=== PATIENT | female | born 1995 | race Two or more races ===

== ENCOUNTER 2018-07-05 04:20 | Emergency (ER) | payer OTHER ==
[2018-07-05] MEDS ORDERED: ONDANSETRON 4 MG TAB.RAPDIS PO ONE (04:46)
--- NOTE | 2018-07-05 06:37 | ER Document Report ---
ED General - General Chief Complaint: Nausea/Vomiting Stated Complaint: POSSIBLE CO EXPOSURE Time Seen by Provider: 07/05/18 04:53 Notes: Patient is a pleasant 23-year-old female who is at the hotel tonight when there was a carbon monoxide leak. Patient says that she was woken by a hotel and told to come out. She said that time she was having headache and some nausea and felt unwell. She does not think she passed out. She felt weak and dizzy. She has no chronic medical problems and is otherwise healthy. TRAVEL OUTSIDE OF THE [place] IN LAST 30 DAYS: No - Related Data Allergies/Adverse Reactions: No Known Allergies Allergy (Verified 07/05/18 11:05) Past Medical History - Social History Smoking Status: Never Smoker Frequency of alcohol use: None Drug Abuse: None Family History: Reviewed & Not Pertinent Patient has suicidal ideation: No Patient has homicidal ideation: No Renal/ Medical History: Denies: Hx Peritoneal Dialysis Review of Systems - Review of Systems Notes: My Normal Review Basic REVIEW OF SYSTEMS: CONSTITUTIONAL : Denies fever, chills, or sweats. Denies recent illness. EENT: Denies eye, ear, throat, or mouth pain or symptoms. Denies nasal or sinus congestion. CARDIOVASCULAR: Denies chest pain. RESPIRATORY: Denies cough, cold, or chest congestion. Denies shortness of breath, difficulty breathing, or wheezing. GASTROINTESTINAL: Denies abdominal pain. Denies nausea, vomiting, or diarrhea. MUSCULOSKELETAL: Denies neck or back pain or joint pain or swelling. SKIN: Denies rash or skin lesions. NEUROLOGICAL: Denies altered mental status or loss of consciousness. Has a headache. Denies weakness or paralysis or loss of use of either side. Denies problems with gait or speech. Denies sensory or motor loss. ALL OTHER SYSTEMS REVIEWED AND NEGATIVE. Physical Exam - Vital signs Vitals: Temp 98.0 F 07/05/18 04:25 - Notes Notes: General Appearance: Well nourished, alert, cooperative, no acute distress, no obvious discomfort. Well appearing. Vitals: reviewed, See vital signs table. Head: no swelling or tenderness to the head Eyes: PERRL, EOMI, Conjuctiva clear Mouth: No decreasd moisture Neck: Supple, no neck tenderness, No thyromegaly Lungs: No wheezing, No rales, No rhonci, No accessory muscle use, good air exchange bilaterally. Heart: Normal rate, Regular rythm, No murmur, no rub Abdomen: Normal BS, soft, No rigidity, No abdominal tenderness, No guarding, no rebound, Extremities: strength 5/5 in all extremities, good pulses in all extremities, no swelling or tenderness in the extremities, no edema. Skin: warm, dry, appropriate color, no rash Neuro: speech clear, oriented x 3, normal affect, responds appropriately to questions. Cranial nerves II through XII are intact. Distal sensation intact. Patient moves all extremities without difficulty. Normal coordination of movements. Course - Re-evaluation Re-evalutation: 07/05/18 06:35 Patient symptoms have completely resolved except for a mild headache. Patient' s repeat check of carbon monoxide is 7%. She looks very well. She is able to stand and walk without any ataxia. She has normal coordination of movement. She has no signs of shortness of breath. She looks well and I feel safe to be discharged home. I strongly encouraged her return to ER if she has severe headache, vomiting, or feels unwell. Patient agrees with plan and will be discharged home. Dictation of this chart was performed using voice recognition software; therefore, there may be some unintended grammatical errors. 07/06/18 00:00 - Vital Signs Vital signs: Temp Pulse Resp BP Pulse Ox 98.3 F 12 114/68 100 07/05/18 06:42 07/05/18 06:37 07/05/18 06:37 07/05/18 06:37 - Laboratory Laboratory results interpreted by me: 07/05/18 04:26 Carboxyhemoglobin 16.8 H Discharge - Discharge Clinical Impression: Carbon monoxide poisoning Qualifiers: Encounter type: initial encounter Injury intent: accidental or unintentional Qualified Code(s): T58.91XA - Toxic effect of carbon monoxide from unspecified source, accidental (unintentional), initial encounter Condition: Good Disposition: HOME, SELF-CARE Additional Instructions: Please return to the ER immediately if you develop worsening headache, vomiting , or feel unwell in any way. Please avoid the hotel until it is completely deemed safe to go in to by the fire department.
[2018-07-05 06:42] VITALS: BP 114/68
== END 2018-07-05 07:00 | disposition home or self-care (01) ==
LOC: ER 04:20
DX: T58.91XA Toxic effect of carbon monoxide from unspecified source, accidental (unintentional), initial encounter (principal); R11.2 Nausea with vomiting, unspecified; R51 Headache; R42 Dizziness and giddiness; X58.XXXA Exposure to other specified factors, initial encounter
CPT/HCPCS: 99284; 36415; 82375; 84703; S0119

== ENCOUNTER 2018-07-05 11:03 | Emergency (ER) | payer OTHER ==
[2018-07-05] MEDS ORDERED: IBUPROFEN 600 MG TABLET PO ONE (12:04)
--- NOTE | 2018-07-05 12:53 | RADIOLOGY REPORT (SQ) ---
EXAM DESCRIPTION: SACRUM AND COCCYX COMPLETED DATE/TIME: 07/05/2018 12:37 pm REASON FOR STUDY: fell on tailbone COMPARISON: None. NUMBER OF VIEWS: Three views. TECHNIQUE: AP, lateral, and tilt views of the sacrum and coccyx. LIMITATIONS: None. FINDINGS: MINERALIZATION: Normal. BONES: No acute fracture or dislocation. No worrisome bone lesions. SOFT TISSUES: No soft tissue swelling. No foreign body. OTHER: No other significant finding. IMPRESSION: NEGATIVE STUDY OF THE SACRUM AND COCCYX. TECHNICAL DOCUMENTATION: JOB ID: [id number] [employer]- All Rights Reserved Reading location - IP/workstation name: [email or web address]
--- NOTE | 2018-07-05 13:26 | ER Document Report ---
HPI - HPI Pain Level: 4 Notes: Patient is a 23-year-old female who presents with pain to her tailbone. Patient reports that she was evacuating from the hotel this morning when she fell landing onto her tailbone onto a hard carpeted surface. Patient reports she is able to walk without difficulty however she states she is having pain in the lowest portion of her back/tailbone. Patient denies any other symptoms, states she just wants to make sure the tailbone is not broken. Past Medical History - General Information source: Patient - Social History Smoking Status: Never Smoker Frequency of alcohol use: Social Drug Abuse: None Family History: Reviewed & Not Pertinent Patient has suicidal ideation: No Patient has homicidal ideation: No - Medical History Medical History: Negative Renal/ Medical History: Denies: Hx Peritoneal Dialysis Surgical Hx: Negative Vertical Provider Document - CONSTITUTIONAL Notes: PHYSICAL EXAMINATION: GENERAL: Well-appearing, well-nourished and in no acute distress. HEAD: Atraumatic, normocephalic. EYES: Pupils equal round extraocular movements intact, conjunctiva are normal. ENT: Nares patent NECK: Normal range of motion LUNGS: No respiratory distress Musculoskeletal: Normal range of motion, tenderness to palpation over coccyx. NEUROLOGICAL: Normal speech, normal gait. PSYCH: Normal mood, normal affect. SKIN: Warm, Dry, normal turgor, no rashes or lesions noted. - INFECTION CONTROL TRAVEL OUTSIDE OF THE [place] IN LAST 30 DAYS: No Course - Re-evaluation Re-evalutation: X-ray is negative for any findings. Patient will be discharged home with conservative pain measurements. - Vital Signs Vital signs: Temp Pulse Resp BP Pulse Ox 98.0 F 88 16 137/98 H 100 07/05/18 11:07 07/05/18 11:07 07/05/18 11:07 07/05/18 11:07 07/05/18 11:07 Discharge - Discharge Clinical Impression: Coccyx pain Fall with injury Qualifiers: Encounter type: initial encounter Qualified Code(s): W19.XXXA - Unspecified fall, initial encounter Condition: Stable Disposition: HOME, SELF-CARE Additional Instructions: Coccyx Injury Your painful tailbone is due to an injury to the `coccyx', the bone at the end of the spine. While quite painful, this injury isn't serious. In fact, it' s really not important whether the bone is fractured or not -- the treatment is the same. In general, this injury is treated by cold-packing the area and resting for a few days. Once you are active again, you may find that a `donut' seat cushion (often used after delivering a baby) helps you sit more comfortably. Avoid constipation by getting lots of fiber. Expect about three or four weeks before you are painfree. You should call your doctor if the pain becomes severe, or if you fail to improve as expected. Ice Packs Apply ice packs frequently against the painful area. Many different schedules are recommended, such as "20 minutes on, 20 minutes off" or "one hour ice, two hours rest." If you need to work, you may need to go longer between ice treatments. You should plan to have the area ice packed AT LEAST one fourth of the time. The ice should be applied over the wrap, tape, or splint, or over a layer of cloth -- not directly against the skin. Some ice bags have a built-in cloth and can be put directly on the skin. Your x-ray taken today was negative meaning there are no fractures or dislocated bones in the area of concern. Please take ibuprofen 600 mg every 6 hours. This will not only help with pain but also inflammation. You may also apply ice packs to the area 20 minutes on 20 minutes off as directed above. Follow-up with your primary care provider if not improving over the next 5-7 days. Prescriptions: Lidocaine [Lidoderm 5% (700 mg) Transdermal Patch] 1 patch TP DAILY #30 adh..patch
[2018-07-05 13:42] VITALS: BP 114/65
== END 2018-07-05 13:42 | disposition home or self-care (01) ==
LOC: ER 11:03
DX: M53.3 Sacrococcygeal disorders, not elsewhere classified (principal); M54.5 Low back pain; W19.XXXA Unspecified fall, initial encounter; Y92.59 Other trade areas as the place of occurrence of the external cause
CPT/HCPCS: 72220; 99283